=== PATIENT | male | born 1975 | race African-American/Black ===

== ENCOUNTER 2017-07-20 13:50 | Emergency (ER) | payer OTHER ==
[2017-07-20] MEDS: IBUPROFEN 800 MG TAB PO (15:03)
[2017-07-20] MEDS: CYCLOBENZAPRINE 10 MG TAB PO (15:03)
== END 2017-07-20 17:01 | disposition home or self-care (01) ==
LOC: M ED 13:50
DX: S16.1XXA Strain of muscle, fascia and tendon at neck level, initial encounter (principal); S46.812A Strain of other muscles, fascia and tendons at shoulder and upper arm level, left arm, initial encounter; S66.912A Strain of unspecified muscle, fascia and tendon at wrist and hand level, left hand, initial encounter; V43.52XA Car driver injured in collision with other type car in traffic accident, initial encounter; Y92.410 Unspecified street and highway as the place of occurrence of the external cause; I10 Essential (primary) hypertension; Z79.899 Other long term (current) drug therapy
CPT/HCPCS: 72040